=== PATIENT | female | born 1955 | race Caucasian/White ===

== ENCOUNTER → 2023-11-30 19:30 | Outpatient (REF) | payer MEDICARE, OTHER, SELFPAY | LOC: WDC 19:30 | PROVIDERS: ATTENDING PHYSICIAN Nurse Practitioner Family; FAMILY PHYSICIAN Family Medicine | DX: Z12.31 Encounter for screening mammogram for malignant neoplasm of breast (principal) | CPT/HCPCS: 77063; 77067 ==

== ENCOUNTER 2024-06-23 06:20 | Day surgery (SDC) | payer MEDICARE, OTHER, SELFPAY | END 2024-06-23 12:04 | disposition home or self-care (01) | LOC: GI 06:20 | PROVIDERS: ATTENDING PHYSICIAN Specialist | DX: Z12.11 Encounter for screening for malignant neoplasm of colon (principal); K57.30 Diverticulosis of large intestine without perforation or abscess without bleeding; D12.0 Benign neoplasm of cecum; D12.2 Benign neoplasm of ascending colon; D12.3 Benign neoplasm of transverse colon; K63.5 Polyp of colon; Z86.0101 Personal history of adenomatous and serrated colon polyps | CPT/HCPCS: 45385; 45380; 88305 ==

== ENCOUNTER 2024-07-27 22:20 | Inpatient (IN) | payer MEDICARE, OTHER, SELFPAY ==
[2024-07-27 15:35] VITALS: BP 146/89
--- NOTE | 2024-07-27 15:57 | ED.GENMED ---
History of Present Illness
General
Chief Complaint: Abdominal Symptoms
Source: patient
Exam Limitations: none
Time Seen by Provider: 07/27/24 15:52
History of Present Illness
History of Present Illness:
See MDM
Past History
Past History
ED Past Medical History: Other (RSD, Parkinson's, diverticulitis, melanoma)
ED Past Surgical History: Cholecystectomy, and Orthopedic
Social History
Tobacco: Non-smoker
Alcohol: None
Personal:
Living: with family
Family History
Family History: Other (she has a mother with hypertension hyperlipidemia)
Phy Exam
Physical Exam
Physical Exam:
See MDM
Course
Orders/Labs/Results
Orders:
Orders
07/27/24 15:57
CT Abd/pelvis W Iv Cont Urgent
Comment:
Reason For Exam: RLQ pain
07/27/24 16:17
Complete Blood Count/With Diff Urgent
Comprehensive Metabolic Panel Urgent
Lipase Urgent
07/27/24 16:19
Ketorolac [Toradol] 30 mg IV NOW STA
07/27/24 17:52
Morphine Sulfate 4 mg IV NOW STA
07/27/24 19:01
HYDROmorphone [Dilaudid] 0.5 mg IV NOW STA
07/27/24 20:25
HYDROmorphone [Dilaudid] 1 mg IV NOW STA
07/27/24 20:44
Urinalysis Reflex To Culture Urgent
Date Specimen was Collected: 07/27/24
Time Specimen was Collected: 16:06
07/27/24 21:08
Piperacillin/Tazo 3.375 Gram [Zosyn] 3.375 gram in 50 ml IV NOW
Abnormal Lab Results
07/27/24
16:17
WBC 11.6 H 10^3/uL
(4.8-10.8)
MCH 31.4 H pg
(27.0-31.0)
Absolute Neuts (auto) 8.3 H 10^3/uL
(1.4-6.5)
Absolute Monos (auto) 0.8 H 10^3/uL
(0.1-0.6)
Lymphocytes % 19.4 L %
(20.5-51.1)
Carbon Dioxide 32 H mmol/L
(22-30)
Glucose 106 H mg/dl
(70-99)
Total Protein 6.1 L g/dl
(6.3-8.2)
07/27/24 16:17
07/27/24 16:17
Vital Signs
Initial and Last Documented VS:
Initial Vital Signs
Temp Pulse Resp BP Pulse Ox
98.5 F 79 18 146/89 100
07/27/24 15:35 07/27/24 15:35 07/27/24 15:35 07/27/24 15:35 07/27/24 15:35
Last Documented Vital Signs
Temp Pulse Resp BP Pulse Ox
97.9 F 79 18 144/71 95
07/27/24 20:34 07/27/24 15:35 07/27/24 15:35 07/27/24 20:26 07/27/24 20:30
MDM/Problems Addressed
Differential Diagnosis Includes:
HPI and MDM Narrative:
68-year-old female presenting with right lower quadrant pain. Symptoms started since yesterday. She states it was gradual onset. at bedside is concerned it could be appendicitis. On exam, she is mildly uncomfortable. No significant
abdominal tenderness on exam. I question any urinary symptoms. She states she did have hematuria a few weeks ago that was treated with antibiotics.
Given complaint, will obtain CT to rule out kidney stone pathology or possibly acute appendicitis
Physical exam
General: Mildly uncomfortable
HEENT: protecting airway
Neck: appears supple
CV: No evidence of cyanosis
Resp: No accessory muscle use
Abd: Non-distended. Mild right lower quadrant tenderness
Extremities: No deformities
Neuro: alert
Psych: Normal affect
Skin: Intact
Problems Addressed including Acute and Chronic Conditions affecting care:
1. Abdominal pain
Acuity: acute
Prognosis: stable
Details: Given right lower quadrant tenderness, will obtain CT to rule out acute appendicitis
Updates
CT consistent with severe diverticulitis. Given the multiple doses of pain medicine, will start antibiotics and admit. Given the Cipro allergy, will start Zosyn
Differential Diagnosis (but not limited to): Acute appendicitis, kidney stone, constipation
Testing considered: Abdominal ultrasound
Drug therapy (if applicable): OTC meds, please see d/c instruction regarding Rx drugs
Amount and/or Complexity of Data Reviewed
Clinical info obtained from: Patient
External data reviewed: N/A
Labs I independently reviewed (but not limited to): Mild leukocytosis
Radiology: The CT scan was personally and independently reviewed. In addition, official CT report reviewed.
Pulse Ox: not hypoxic
EKG independently reviewed: N/A
Facetor: N/A
Critical Care: N/A
Risk of Complication:
Social Determinants of health: Good social support
Discussed with other providers: Hospitalist
Escalation of Care includes Admit/Obs: Given the significant mount of diverticulitis and her discomfort, will start IV pain medicine and IV antibiotics
Occasional wrong word or 'sound a like' substitutions may have occurred due to the inherent limitations of voice recognition software. Read the chart carefully and recognize, using context, where substitutions have occurred.
*Critical Care Note
Total Time (30-74mins, 75-104mins- exclusive of procedures): Not Applicable
ED Attending Note
-
Portions of this chart may have been created with voice recognition software.� Occasional wrong word or��sound alike� substitutions may have occurred due to the inherent limitations of voice recognition software.
Discharge Plan
Departure
Patient Disposition: Admit
Date of Disposition: 07/27/24
Time of Disposition: 21:20
Admit to: Med/Surg
Presentation/result/management discussed w/ accepting MD/DO: Hospitalist
Discharge Problem:
Diverticulitis
Prescriptions:
No Action
ascorbic acid (vitamin C) [Vitamin C] 500 MG tablet
2,000 mg PO DAILY
levothyroxine 50 MCG tablet
50 mcg PO DAILY
vitamin B complex [B-Complex] 1 TAB tablet
1 tab PO DAILY
ketorolac 10 MG tablet
10 mg PO Q6HPRN PRN (Reason: little)
vitamin D3-vitamin K2 (MK4) [K2 Plus D3] 1 EACH tablet
6 drops PO DAILY
safinamide [Xadago] 100 MG tablet
100 mg PO DAILY
Tumeric
4 tab PO DAILY
cyanocobalamin (vitamin B-12) 1,000 MCG tablet
1,000 mcg PO DAILY
bupropion HCl 150 MG tablet extended release 24 hr
150 mg PO DAILY
multivitamin with folic acid [Tab-A-Marlene] 1 TABLET tablet
1 tab PO DAILY
amoxicillin-pot clavulanate 1 TABLET tablet
1 tab PO Q12 Qty: 20 0RF
Bacillus coagulans [Probiotic (B. coagulans)] 1 EACH capsule,delayed release(DR/EC)
1 ea PO DAILY Qty: 30 0RF
Rx Instructions:
take while on oral antibiotics
pantoprazole [Protonix] 40 mg tablet,delayed release (DR/EC)
40 mg PO DAILY Qty: 30 0RF
Rx Instructions:
Please take 30 minutes prior to eating or drinking anything in the morning.
Referrals:
Araseli Baca MD [Family Provider] -
Interventions
Interventions:
*Risk Screen - Suicide Last Done: 07/27/24 15:35
*General Assessment Last Done: 07/27/24 15:35
*Neglect/Abuse Screening Last Done: 07/27/24 15:35
*ED- Fall Risk Assessment Last Done: 07/27/24 16:26
*ED COVID-19 Vaccine History Last Done: 07/27/24 16:26
OC-Jpiwxg-Qecdwvixqt Assessment Last Done: 07/27/24 16:26
Discharge Date and Time
Print Language: BENGALI
[2024-07-27] MEDS: TORADOL 30 MG IV (16:23)
[2024-07-27 16:26] VITALS: BMI 29.4
[2024-07-27 16:26] LABS: % Basophils 0.3 % (0-2); % Eosinophils 1.5 % (0-6); % Immature Granulocytes 0.3 % (0-0.5); % Lymphocytes 19.4 % (20.5-51.1); % Monocytes 6.9 % (1.7-9.3); % Neutrophils 71.6 % (42.2-75.2); Absolute Eosinophils 0.2 10^3/uL (0-0.7); Absolute Lymphocytes 2.3 10^3/uL (1.2-3.4); Absolute Monocytes 0.8 10^3/uL (0.1-0.6); Absolute Neutrophils 8.3 10^3/uL (1.4-6.5); Hematocrit 39.5 % (37.0-47.0); Hemoglobin 13.4 g/dL (12.0-16.0); Mean Corp Hgb Conc. 33.9 g/dL (33.0-37.0); Mean Corpuscular Hgb 31.4 pg (27.0-31.0); Mean Corpuscular Volume 92.5 fL (81.0-99.0); Mean Platelet Volume 9.8 fL (7.4-10.4); Nucleated Red Blood Cells % 0 %; Platelet Count 265 10^3/uL (130-400); Red Blood Cell Count 4.27 10^6/uL (4.20-5.40); Red Cell Dist. Width 12.7 % (11.5-14.5); White Blood Cell Count 11.6 10^3/uL (4.8-10.8)
[2024-07-27 16:39] LABS: ALT (SGPT) 17 U/L (0-35); AST (SGOT) 17 U/L (14-36); Albumin 3.8 g/dl (3.5-5.0); Alkaline Phosphatase 81 U/L (38-126); Blood Urea Nitrogen 14 mg/dl (7-17); Carbon Dioxide 32 mmol/L (22-30); Chloride 107 mmol/L (98-107); Estimated Creatinine Clearance 69 ml/min; Glucose 106 mg/dl (70-99); Lipase 35 U/L (23-300); Potassium 4.3 mmol/L (3.5-5.1); Sodium 141 mmol/L (135-145); Total Bilirubin 0.6 mg/dl (0.2-1.3); Total Protein 6.1 g/dl (6.3-8.2); eGFR > 60.00
[2024-07-27] MEDS: MORPHINE SULFATE 4 MG IV (18:02)
[2024-07-27] MEDS: DILAUDID 0.5 MG IV (19:06)
[2024-07-27 20:26] VITALS: BP 144/71
[2024-07-27] MEDS: DILAUDID 1 MG IV (20:30)
[2024-07-27] MEDS: ZOFRAN 4 MG IV (21:32)
--- NOTE | 2024-07-27 21:32 | HPS.HSE ---
Family Physician
-
Family Physician: Araseli Baca
Chief Complaint
-
abdominal pain
History of Present Illness
Ms. Cynthia Rodriguez is a 68 yo woman with hx Parkinson's disease, cholecystectomy, cervical fusion surgery presents to the ER complaining of abdominal pain.
She has had acute diverticulitis before, last time 3 years ago. Yesterday pain started and she presented to ER today. Pain is lower abdomen. + nausea. No fevers/chills.
She denies current pain in RUQ but states sometimes she experiences pain thre post eating.
No chest pain or shortness of breath. No LE swelling.
Medical History
Past Medical History
Past Medical History: Reports Other (Migraine, Parkinson's)
Past Surgical History: Reports Cholecystectomy and Orthopedic
Social History
Tobacco: Former Smoker
Alcohol: Occasional
Family History
Family History: Not pertinent
Allergies / Home Medications
Allergies reflects when Allergies were last updated in [facility].
Home Medications with original date entered in [facility]
Allergy/Medication List:
Allergies
Allergy/AdvReac Type Severity Reaction Status Date / Time
ciprofloxacin Allergy Unknown Verified 07/27/24 15:35
zolmitriptan [From Zomig] Allergy Hives Verified 07/27/24 15:35
Home Medications
ascorbic acid (vitamin C) 500 mg tablet (Vitamin C) 2,000 mg PO DAILY Supplement 10/10/11
levothyroxine 50 mcg tablet 50 mcg PO DAILY Thyroid 10/10/11
vitamin B complex (B-Complex tablet) 1 tab PO DAILY Supplement 10/10/11
cholecalciferol (vit D3) 1,000 unit-vitamin K2 (MK4) 100 mcg tablet (K2 Plus D3) 6 drops PO DAILY Supplement 05/19/21
cyanocobalamin (vitamin B-12) 1,000 mcg tablet 1,000 mcg PO DAILY Supplement 05/19/21
multivitamin with folic acid 400 mcg tablet (Tab-A-Marlene) 1 tab PO DAILY Supplement 05/19/21
safinamide 100 mg tablet (Xadago) 100 mg PO DAILY parkinson's 05/19/21
turmeric 400 mg capsule 400 mg PO DAILY Supplement 05/19/21
Lactobac no.2-Bifidobac no.1-S. thermo 112.5 billion cell capsule (Visbiome) 1 cap PO DAILY 07/27/24
carbidopa 25 mg-levodopa 100 mg tablet 1 tab PO TID 07/27/24
ramelteon 8 mg tablet 8 mg PO HS 07/27/24
rimegepant 75 mg disintegrating tablet (Nurtec ODT) 75 mg PO DAILYPRN PRN MIRGRAINES 07/27/24
trazodone 50 mg tablet 25 mg PO HS 07/27/24
Review of Systems
-
History Source: Patient
A 12 point ROS was completed and negative except as noted: Yes
Physical Exam
Vital Signs
Vital Signs
Temp Pulse Resp BP Pulse Ox
97.9 F 79 18 144/71 95
07/27/24 20:34 07/27/24 15:35 07/27/24 15:35 07/27/24 20:26 07/27/24 20:30
Physical Exam
General: Other (appears in pain )
HEENT: PERRLA
Respiratory: Clear; No Wheezes
Cardiac: S1/S2 and Regular Rhythm
GI: Other (no tenderness RUQ; tender b/l lower quadrants, no rebound or guarding )
Musculoskeletal: No Edema
Skin: Warm and Dry; No Rash
Neuro: AO x 3
Psych: Calm
Laboratory Results
-
07/27/24 16:17
07/27/24 16:17
Laboratory Results
Total Bilirubin 0.6 mg/dl (0.2-1.3) 07/27/24 16:17
AST 17 U/L (14-36) 07/27/24 16:17
ALT 17 U/L (0-35) 07/27/24 16:17
Alkaline Phosphatase 81 U/L (38-126) 07/27/24 16:17
Lipase 35 U/L (23-300) 07/27/24 16:17
Data Reviewed
-
Diagnostic Radiology: Report Reviewed by me
Lab Data: Labs Reviewed by me
Impression/Plan
-
Ms. Cynthia Rodriguez is a 68 yo woman with hx Parkinson's disease, cholecystectomy, cervical fusion surgery presents to the ER complaining of abdominal pain found to have acute diverticulitis. She is also found to have severe intrahepatic and
extrahepatic biliary dilatation.
Triage VS: T 98.5, P 79, RR 18, BP 146/89, SpO2 100%
LABS: WBC 11.6, Hg 13.4, PLT 265, Na 141, K+ 4.3, CO2 32, BUN 14, Cr 0.8, Glucose 106, liver enzymes WNL, lipase 35
Abdomen/Pelvis CT
IMPRESSION:
1. ACUTE DIVERTICULITIS of the MID SIGMOID COLON with severe pericolonic inflammation and a small amount of adjacent peritoneal fluid.
2. Severe diverticulosis in the sigmoid colon and ascending colon.
3. Moderate amount of fecal material throughout the colon.
4. SEVERE INTRAHEPATIC and EXTRAHEPATIC BILIARY DILATATION which has markedly increased since 01/19/2023.
5. Mild hepatomegaly.
6. Mild diffuse urinary bladder wall thickening containing tiny calcifications suggesting chronic cystitis.
7. Small calcified uterine leiomyoma.
Acute Diverticulitis
-admit to medicine
-continue IV Zosyn
-IVF
-NPO except medications
-pain control
Severe intrahepatic and extrahepatic biliary dilatation
-liver enzymes WNL
-will order MRI Abdomen w and w/out contrast
-GI consulted
Parkinson's disease
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
DVT PPx Lovenox subQ
FULL CODE
[2024-07-27] MEDS: ZOSYN 50 IV (21:35)
[2024-07-27] MEDS: FLUSH (NSS) 1 FLUSH IV (23:03)
[2024-07-27 23:11] LABS: Urine Albumin 2+ (Neg - Trace); Urine Bilirubin Negative (Negative); Urine Character Clear (Clear); Urine Color Yellow; Urine Glucose Negative (Negative); Urine Ketone Negative (Negative); Urine Leukocyte Negative (Negative); Urine Nitrite Negative (Negative); Urine Occult Blood 4+ (Negative); Urine Urobilinogen 2+ (Neg - 1+); Urine pH 6.5 (5.0-9.0)
[2024-07-27 23:25] LABS: Urine White Cell None Seen /HPF (0-5)
[2024-07-27] MEDS: TORADOL 15 MG IV (23:44)
[2024-07-27] MEDS: LR 1000 IV (23:49)
[2024-07-27] MEDS: DESYREL 25 MG PO (23:50)
[2024-07-28 00:02] VITALS: BP 104/56
[2024-07-28] MEDS: SINEMET 25-100 1 TABLET PO ×4 (00:24→22:02)
[2024-07-28] MEDS: ZOSYN 50 IV ×4 (04:17→22:01)
[2024-07-28 04:27] VITALS: BP 127/71
[2024-07-28] MEDS: DILAUDID 1 MG IV ×2 (04:32→22:01)
[2024-07-28 04:41] LABS: % Basophils 0.3 % (0-2); % Eosinophils 1.3 % (0-6); % Immature Granulocytes 0.3 % (0-0.5); % Lymphocytes 19.8 % (20.5-51.1); % Neutrophils 71.3 % (42.2-75.2); Absolute Eosinophils 0.1 10^3/uL (0-0.7); Absolute Monocytes 0.7 10^3/uL (0.1-0.6); Absolute Neutrophils 7.3 10^3/uL (1.4-6.5); Hematocrit 36.4 % (37.0-47.0); Hemoglobin 12.3 g/dL (12.0-16.0); Mean Corp Hgb Conc. 33.8 g/dL (33.0-37.0); Mean Corpuscular Hgb 31.1 pg (27.0-31.0); Mean Corpuscular Volume 91.9 fL (81.0-99.0); Nucleated Red Blood Cells % 0 %; Platelet Count 244 10^3/uL (130-400); Red Blood Cell Count 3.96 10^6/uL (4.20-5.40); Red Cell Dist. Width 12.5 % (11.5-14.5); White Blood Cell Count 10.2 10^3/uL (4.8-10.8)
[2024-07-28 05:08] LABS: ALT (SGPT) 13 U/L (0-35); AST (SGOT) 132 U/L (14-36); Albumin 3.4 g/dl (3.5-5.0); Alkaline Phosphatase 95 U/L (38-126); Blood Urea Nitrogen 16 mg/dl (7-17); Calcium 8.6 mg/dl (8.4-10.2); Carbon Dioxide 27 mmol/L (22-30); Chloride 109 mmol/L (98-107); Estimated Creatinine Clearance 79 ml/min; Glucose 119 mg/dl (70-99); Magnesium 2.1 mg/dl (1.6-2.3); Potassium 4.3 mmol/L (3.5-5.1); Sodium 141 mmol/L (135-145); Total Bilirubin 1.2 mg/dl (0.2-1.3); Total Protein 5.7 g/dl (6.3-8.2); eGFR > 60.00
[2024-07-28] MEDS: SYNTHROID 50 MCG PO (07:54)
--- NOTE | 2024-07-28 08:10 | CON.GI ---
Addendum entered and electronically signed by Jason Tucker MD 07/28/24 16:06:
Patient seen and examined, agree with resident note. Patient is a 68-year-old female with past medical history as noted who presents with right sided and left lower quadrant pain. About 2 days ago she started having pain, initially in the right
side that radiates to her lower back and also left-sided pain with diarrhea. She denies any fevers or chills. Her left-sided pain does feel somewhat similar to her diverticulitis in the past though not the right sided pain. She did have hematuria
grossly also a couple weeks ago and saw her PCP. Her last colonoscopy was this year with 5 polyps and diverticulosis. Currently she is feeling better, again with no severe pain again though still having some bilateral discomfort. On exam she has
some mild right sided tenderness as well as some mild left lower quadrant tenderness, though no rebound or guarding. Labs showed initial with normally LFTs, though AST then increased on repeat. CT scan showed changes consistent with uncomplicated
diverticulitis as well as significant intra and extra [place] biliary duct dilation.
1. Diverticulitis: With left lower quadrant pain and consistent with CT scan, though uncomplicated. Colonoscopy earlier this year was otherwise unremarkable. Will continue antibiotics, bowel rest and supportive care for now.
2. Dilated intra/extrahepatic biliary ducts: She did have some right sided pain, though her LFTs on admission were completely normal making CBD stone much less likely. She did have gross hematuria also and other etiologies including passed kidney
stone or bladder stone are also possible. At this point we will continue to trend LFTs and await MRI as ordered.
Original Note:
Consultation
-
Date/Time Consultation Requested: 07/28/2024
Date/Time Consultation Performed: 07/28/2024
Requesting Provider: Dr Julio C Tucker
Performing Provider: Dr Lino Caceres
Reason for Consultation: diverticulitis
Medical History
Chief Complaint / HPI
Chief Complaint: Abdominal pain
History of Present Illness:
68-year-old female with history of Parkinson disease presented to the ED with left and right lower quadrant pain. Patient states that 2 days ago she started to feel unwell. She reports of having watery diarrhea x 3 episodes. Yesterday (07/27) she
started having right lower quadrant pain first and then it radiated to the left lower quadrant and then to her lower back. Patient also lost her appetite. She admits to having nausea and some chills. She denies fever vomiting. She does not take
any medication to alleviate her pain. She has had diverticulitis in the past twice. She denies personal history/family history of colon cancer. Her last colonoscopy was in 2024--5 polyps were removed. No history of diabetes, hypertension,
hyperlipidemia, stroke, PA. She is a former smoker, quit 40 years ago. She rarely drinks alcohol. She admits to taking Advil/Tylenol for migraine headaches.
Past Medical History
Past Medical History: Other (Parkinson's disease)
Past Surgical History: Cholecystectomy
Social History
Tobacco: Former Smoker
Alcohol: Occasional
Drug: None
Personal:
Living: With Family
Employment: Retired
Family History
Family History: Reviewed & Not Pertinent
Allergies / Home Medications
Allergy/AdvReac Type Severity Reaction Status Date / Time
ciprofloxacin Allergy Unknown Verified 07/27/24 15:35
zolmitriptan [From Zomig] Allergy Hives Verified 07/27/24 15:35
�Medication �Instructions �Recorded
ascorbic acid (vitamin C) 500 mg 2,000 mg PO DAILY Supplement 10/10/11
tablet (Vitamin C)
levothyroxine 50 mcg tablet 50 mcg PO DAILY Thyroid 10/10/11
vitamin B complex (B-Complex 1 tab PO DAILY Supplement 10/10/11
tablet)
cholecalciferol (vit D3) 1,000 6 drops PO DAILY Supplement 05/19/21
unit-vitamin K2 (MK4) 100 mcg
tablet (K2 Plus D3)
cyanocobalamin (vitamin B-12) 1,000 mcg PO DAILY Supplement 05/19/21
1,000 mcg tablet
multivitamin with folic acid 400 1 tab PO DAILY Supplement 05/19/21
mcg tablet (Tab-A-Marlene)
safinamide 100 mg tablet (Xadago) 100 mg PO DAILY parkinson's 05/19/21
turmeric 400 mg capsule 400 mg PO DAILY Supplement 05/19/21
Lactobac no.2-Bifidobac no.1-S. 1 cap PO DAILY 07/27/24
thermo 112.5 billion cell capsule
(Visbiome)
carbidopa 25 mg-levodopa 100 mg 1 tab PO TID 07/27/24
tablet
ramelteon 8 mg tablet 8 mg PO HS 07/27/24
rimegepant 75 mg disintegrating 75 mg PO DAILYPRN PRN MIRGRAINES 07/27/24
tablet (Nurtec ODT)
trazodone 50 mg tablet 25 mg PO HS 07/27/24
Review of Systems
-
All other systems: A 12 pt ROS was Negative except as stated above in HPI
Vital Signs
Temp Pulse Resp BP Pulse Ox
97.9 F 55 16 127/71 96
07/28/24 04:26 07/28/24 04:26 07/28/24 04:26 07/28/24 04:27 07/28/24 04:30
Physical Exam
Exam
General: No Apparent Distress and Comfortable
HEENT: Normocephalic
Respiratory: Clear
Cardiac: S1/S2 and Regular Rhythm
GI: Soft, Non Distended, Normal Bowel Sounds and Tender (LLQ )
Musculoskeletal: No Edema
Neuro: AO x 3
Psych: Calm
Results
WBC 10.2 10^3/uL (4.8-10.8) 07/28/24 04:16
Hgb 12.3 g/dL (12.0-16.0) 07/28/24 04:16
Hct 36.4 % (37.0-47.0) L 07/28/24 04:16
MCV 91.9 fL (81.0-99.0) 07/28/24 04:16
Plt Count 244 10^3/uL (130-400) 07/28/24 04:16
Absolute Neuts (auto) 7.3 10^3/uL (1.4-6.5) H 07/28/24 04:16
Sodium 141 mmol/L (135-145) 07/28/24 04:16
Potassium 4.3 mmol/L (3.5-5.1) 07/28/24 04:16
Chloride 109 mmol/L (98-107) H 07/28/24 04:16
Carbon Dioxide 27 mmol/L (22-30) 07/28/24 04:16
BUN 16 mg/dl (7-17) 07/28/24 04:16
Creatinine 0.7 mg/dL (0.6-1.0) 07/28/24 04:16
Calcium 8.6 mg/dl (8.4-10.2) 07/28/24 04:16
Total Bilirubin 1.2 mg/dl (0.2-1.3) 07/28/24 04:16
AST 132 U/L (14-36) H 07/28/24 04:16
ALT 13 U/L (0-35) 07/28/24 04:16
Alkaline Phosphatase 95 U/L (38-126) 07/28/24 04:16
Lipase 35 U/L (23-300) 07/27/24 16:17
Diagnostic Image Results:
Prior GI Procedures:
EGD:
Colonoscopy: 06/23/24
- Two 6 mm polyps in the ascending colon, removed with
a cold snare. Resected and retrieved.
- Two diminutive polyps at the hepatic flexure and in
the cecum, removed with a jumbo cold forceps. Resected
and retrieved.
- One 5 mm polyp in the transverse colon, removed with
a cold snare. Resected and retrieved.
- Diverticulosis in the sigmoid colon.
Assessment / Plan
-
Assessment and plan
#Acute mild diverticulitis
#Intra/extrahepatic biliary dilatation on CT abdomen/pelvis
-History of diverticulitis in the past x 2. Up-to-date with colonoscopy no need for repeat
- Afebrile no leukocytosis,
- AST has elevated 132, alk phos 95 , ALT 13. bili 1.2
- Check MRI of abdomen
- Monitor LFT
-Continue antibiotic
- NPO for now, await imaging for further recommendation.
-
-
Thank you for consultation and allowing me to participate in the patient's care. Please call the parking regulation enforcement officer GI physician during the after hours with any questions or concerns.
[2024-07-28] MEDS: TYLENOL 650 MG PO ×2 (09:18→15:40)
[2024-07-28] MEDS: TORADOL 15 MG IV ×2 (11:03→17:34)
[2024-07-28 11:14] VITALS: BP 121/60
[2024-07-28] MEDS: LR 1000 IV (13:43)
--- NOTE | 2024-07-28 15:26 | W.PN.HOSP.TC ---
Addendum entered and electronically signed by Philip Salgado MD 07/28/24 21:27:
Attending Addendum-
I saw and evaluated the patient. I reviewed the resident�s note and agree with findings and plan as documented in the resident�s note. Sub: Seen with present. Still with abd pain lower abdomen. Non radiating. Denies N/V. No appetite yet.
Denies diarrhea. Afebrile. Full 12 point ROS reviewed and negative except as documented Exam: Vitals reviewed in chart GEN-NAD heart RRR lungs CTA B/L Abd soft TTP LLQ and RUQ LE no edema
Plan:
# Acute uncomplicated Diverticulitis
-continue IV Zosyn
-IVF
-NPO except medications for now
-pain control
-GI c/s
# Severe intrahepatic and extrahepatic biliary dilatation
-ast now elevated
-h/o cholecystectomy
-MRCP ordered
-GI consulted
-trend
# Hematuria
- CTM
- f/u as OP
# Parkinson's disease
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
# Hypothyroidism- cont levothyroxine
# Insomnia- cont trazodone
DVT PPx Lovenox subQ
FULL CODE
ACP
Patient consented to discuss, was with , time spent explanation of advance directives, changes in health status, patient�s health care wishes if the patient becomes unable to make health decisions, goals of care, code status, and prognosis-
16 minutes
Time spent coordinating care, review of plan of care with resident, personally reviewed previous records in EMR, med rec, labs, radiology, d/w nursing, family total time documented is exclusive of any additional time listed that was spent in advance
care planning discussion -� 52 minutes
Original Note:
Today's Communication/Plan
-
Keep n.p.o., continue IV fluids, manage pain
MRI Abdomen
Assessment / Plan
Assessment / Plan
Impression
Patient is a 68-year-old female, who presented to emergency with history of diarrhea for last 2 days with chills, containing mucus, no blood. Started developing abdominal pain in the left lower quadrant and right lower quadrant since yesterday. CT
abdomen done in the ER consistent with acute diverticulitis in mid sigmoid colon.
Assessment/plan
1. Acute uncomplicated diverticulitis
Patient complains of bilateral lower quadrant pain, nausea, loose stools but is afebrile and has no vomiting
Tender on palpation in bilateral lower quadrants
CT abdomen and pelvis consistent with acute diverticulitis of sigmoid colon
CT abdomen/pelvis
IMPRESSION
1. ACUTE DIVERTICULITIS of the MID SIGMOID COLON with severe pericolonic inflammation and a small amount of adjacent peritoneal fluid.
2. Severe diverticulosis in the sigmoid colon and ascending colon.
3. Moderate amount of fecal material throughout the colon.
4. SEVERE INTRAHEPATIC and EXTRAHEPATIC BILIARY DILATATION which has markedly increased since 01/19/2023.
5. Mild hepatomegaly.
6. Mild diffuse urinary bladder wall thickening containing tiny calcifications suggesting chronic cystitis.
7. Small calcified uterine leiomyoma.
GI consult appreciated-awaiting MRI abdomen
Patient is n.p.o., on IV fluids, and pain management
Currently on Zosyn
Follow MRI abdomen
Continue to observe the patient, and advance diet as tolerated
2. Severe intrahepatic and extrahepatic biliary dilatation with mildly elevated liver enzymes
History of cholecystectomy
Patient asymptomatic
Mild elevation in liver enzymes-continue to monitor
Other medical conditions
Parkinson's disease-continue Sinemet and xadago
Hypothyroidism-continue levothyroxine
Migraines
CODE STATUS-full code
DVT prophylaxis-enoxaparin
Anticipated Discharge: 24 - 48 hours
Subjective/Interval History
-
Date of Service: July 28, 2024
Patient still complains of abdominal pain in the left lower quadrant and right lower quadrant, rates the pain as 4/10
Has bouts of nausea
No appetite
Objective Data
-
Labs:
Laboratory Results
07/28/24
04:16
WBC 10.2
Hgb 12.3
Hct 36.4 L
Plt Count 244
Sodium 141
Potassium 4.3
Chloride 109 H
Carbon Dioxide 27
BUN 16
Creatinine 0.7
Glucose 119 H
Calcium 8.6
Total Bilirubin 1.2
AST 132 H
ALT 13
Alkaline Phosphatase 95
Vital Signs:
Vital Signs
Temp Pulse Resp BP Pulse Ox
97.6 F 47 16 121/60 98
07/28/24 11:14 07/28/24 11:14 07/28/24 11:14 07/28/24 11:14 07/28/24 11:14
Review of Systems
-
All other systems: Reviewed and negative
Physical Exam
-
General: Well Developed, Well Nourished, No Apparent Distress, Comfortable and Conversant
HEENT: Normocephalic, Atraumatic and Moist Mucous Membranes
Respiratory: Clear to Auscultation and Other (No wheezes rales or rhonchi)
Cardiac: Regular Rhythm, S1/S2 and Other (No murmurs, rubs or gallops)
GI: Soft, Normal Bowel Sounds, Tender (Tender on palpation in the left lower quadrant and right lower quadrant) and Other (No guarding)
Musculoskeletal: No Clubbing, No Cyanosis and No Edema
Skin: Warm and Dry
Neuro: Awake, Oriented and No Motor Deficits
Psych: Calm
[2024-07-28 15:44] VITALS: BP 123/65
[2024-07-28] MEDS: DESYREL 25 MG PO (22:01)
[2024-07-28] MEDS: ZOFRAN 4 MG IV (22:52)
[2024-07-28 23:11] LABS: Glucose - Point of Care 87 mg/dl (70-99)
[2024-07-28 23:27] VITALS: BP 157/69
[2024-07-29] MEDS: ZOSYN 50 IV ×4 (04:04→21:09)
[2024-07-29] MEDS: SYNTHROID 50 MCG PO (05:58)
[2024-07-29] MEDS: LR IV (06:00)
[2024-07-29 07:33] VITALS: BP 156/86
[2024-07-29] MEDS: SINEMET 25-100 1 TABLET PO ×3 (07:59→21:09)
[2024-07-29] MEDS: ZOFRAN 4 MG IV (08:05)
--- NOTE | 2024-07-29 08:25 | W.PN.GI.CBS2 ---
Today's Communication / Plan
-
Please see assessment and plan for details.
Assessment / Plan
-
1. Abdominal pain: Most consistent with diverticulitis, noted on CT scan, with initial leukocytosis which is since resolved. Her pain is improving. At this point will advance diet to full liquids and continue antibiotics, continue to trend labs
for now. Colonoscopy earlier this year was otherwise unremarkable besides diverticulosis and polyps.
2. Dilated biliary ducts: LFTs normal initially, with slight bump in AST possibly related to antibiotics. Will await MRI results and continue to trend LFTs for now.
Subjective
Subjective
Date of Service: July 29, 2024
Patient was in nausea overnight, though improved pain. No diarrhea, fever, chills, vomiting. Has tolerated clears without difficulty so far.
Objective
Data Reviewed
Laboratory Data:
Laboratory Results
Magnesium 2.1 mg/dl (1.6-2.3) 07/28/24 04:16
Total Bilirubin 1.2 mg/dl (0.2-1.3) 07/28/24 04:16
AST 132 U/L (14-36) H 07/28/24 04:16
ALT 13 U/L (0-35) 07/28/24 04:16
Alkaline Phosphatase 95 U/L (38-126) 07/28/24 04:16
Lipase 35 U/L (23-300) 07/27/24 16:17
Vital Signs and I&O:
Vital Signs
Temp Pulse Resp BP Pulse Ox
98.1 F 83 18 156/86 98
07/29/24 07:33 07/29/24 07:33 07/29/24 07:33 07/29/24 07:33 07/29/24 07:33
Physical Exam
Physical Exam
General: NAD
Abdomen: normal bowel sounds, soft, minimal left lower quadrant tenderness, no masses or bruits, no ascites
[2024-07-29] MEDS: TYLENOL 650 MG PO (09:46)
[2024-07-29 10:02] LABS: % Basophils 0.5 % (0-2); % Eosinophils 1.4 % (0-6); % Immature Granulocytes 0.4 % (0-0.5); % Lymphocytes 11.3 % (20.5-51.1); % Monocytes 3.4 % (1.7-9.3); Absolute Eosinophils 0.1 10^3/uL (0-0.7); Absolute Lymphocytes 0.9 10^3/uL (1.2-3.4); Absolute Monocytes 0.3 10^3/uL (0.1-0.6); Absolute Neutrophils 6.6 10^3/uL (1.4-6.5); Hematocrit 38.6 % (37.0-47.0); Hemoglobin 13.3 g/dL (12.0-16.0); Mean Corp Hgb Conc. 34.5 g/dL (33.0-37.0); Mean Corpuscular Hgb 31.6 pg (27.0-31.0); Mean Corpuscular Volume 91.7 fL (81.0-99.0); Mean Platelet Volume 10.3 fL (7.4-10.4); Nucleated Red Blood Cells % 0 %; Platelet Count 251 10^3/uL (130-400); Red Blood Cell Count 4.21 10^6/uL (4.20-5.40); Red Cell Dist. Width 12.1 % (11.5-14.5)
[2024-07-29 10:40] LABS: ALT (SGPT) 41 U/L (0-35); AST (SGOT) 82 U/L (14-36); Albumin 3.4 g/dl (3.5-5.0); Alkaline Phosphatase 143 U/L (38-126); Blood Urea Nitrogen 21 mg/dl (7-17); Calcium 8.4 mg/dl (8.4-10.2); Carbon Dioxide 24 mmol/L (22-30); Chloride 106 mmol/L (98-107); Direct Bilirubin 0.4 mg/dl (0.0-0.4); Estimated Creatinine Clearance 61 ml/min; Glucose 131 mg/dl (70-99); Magnesium 1.7 mg/dl (1.6-2.3); Potassium 3.9 mmol/L (3.5-5.1); Sodium 137 mmol/L (135-145); Total Protein 5.7 g/dl (6.3-8.2); eGFR > 60.00
[2024-07-29] MEDS: TORADOL 15 MG IV (11:03)
--- NOTE | 2024-07-29 11:39 | W.PN.HOSP.TC ---
Today's Communication/Plan
-
Pain control
Restart fluids if with nausea
Pain control
IV antibiotics
Assessment / Plan
Assessment / Plan
# Acute uncomplicated Diverticulitis
-continue IV Zosyn
- Off IV fluids and can be restarted if with nausea or vomiting
- Diet advanced however with abdominal pain. Recommend to skip lunch and try again later today for dinner.
-pain control
-GI c/s
# Severe intrahepatic and extrahepatic biliary dilatation
-ast now elevated
-h/o cholecystectomy
-MRCP results pending
-GI consulted
-trend
# Hematuria
- CTM
- f/u as OP
# Parkinson's disease
-PUMPER HEAD- Xadago, Sinemet, nurtec
# Hypothyroidism- cont levothyroxine
# Insomnia- cont trazodone
DVT PPx Lovenox subQ
FULL CODE
Anticipated Discharge: > 48 hours
Subjective/Interval History
-
Date of Service: July 29, 2024
states of abd pain after drinking broth earlier today
emotional due to pain
Objective Data
-
Labs:
Laboratory Results
07/29/24
08:55
WBC 8.0
Hgb 13.3
Hct 38.6
Plt Count 251
Sodium 137
Potassium 3.9
Chloride 106
Carbon Dioxide 24
BUN 21 H
Creatinine 0.9
Glucose 131 H
Calcium 8.4
Total Bilirubin 1.0
AST 82 H
ALT 41 H
Alkaline Phosphatase 143 H
Vital Signs:
Vital Signs
Temp Pulse Resp BP Pulse Ox
98.1 F 83 18 156/86 98
07/29/24 07:33 07/29/24 07:33 07/29/24 07:33 07/29/24 07:33 07/29/24 07:33
Physical Exam
-
General: Well Developed, Well Nourished, No Apparent Distress, Comfortable, Pain and Conversant
HEENT: Normocephalic, Atraumatic and Moist Mucous Membranes
Respiratory: Clear to Auscultation
Cardiac: Regular Rhythm and S1/S2
GI: Soft, Normal Bowel Sounds and Tender (Tender on palpation in the left lower quadrant and right lower quadrant)
Musculoskeletal: No Clubbing, No Cyanosis and No Edema
Skin: Warm and Dry
Neuro: Awake and No Motor Deficits
Psych: Calm
[2024-07-29] MEDS: MORPHINE SULFATE 2 MG IV ×3 (12:13→21:13)
--- NOTE | 2024-07-29 12:56 | CM ---
manager security and safety reviewed patient's chart and met with patient and patient lives with her spouse in a 2 story home, patient is independent with adl's and ambulation, no dme, patient drives, home with spouse when stable, no needs.
PCP: Dr Melinda Baca
Pharmacy: [facility] in [place]
Plan; Home with spouse no needs when stable.
[2024-07-29 15:22] VITALS: BP 150/76
[2024-07-29] MEDS: DESYREL 25 MG PO (21:07)
[2024-07-29 23:25] VITALS: BP 144/63
[2024-07-30] MEDS: ZOSYN 50 IV ×4 (04:35→21:53)
[2024-07-30] MEDS: SYNTHROID 50 MCG PO (05:03)
[2024-07-30] MEDS: MORPHINE SULFATE 2 MG IV ×4 (06:17→21:52)
[2024-07-30 06:33] LABS: % Basophils 0.5 % (0-2); % Eosinophils 6.2 % (0-6); % Immature Granulocytes 0.3 % (0-0.5); % Lymphocytes 33.7 % (20.5-51.1); % Monocytes 8.2 % (1.7-9.3); % Neutrophils 51.1 % (42.2-75.2); Absolute Eosinophils 0.5 10^3/uL (0-0.7); Absolute Lymphocytes 2.5 10^3/uL (1.2-3.4); Absolute Monocytes 0.6 10^3/uL (0.1-0.6); Absolute Neutrophils 3.7 10^3/uL (1.4-6.5); Hematocrit 36.8 % (37.0-47.0); Hemoglobin 12.7 g/dL (12.0-16.0); Mean Corp Hgb Conc. 34.5 g/dL (33.0-37.0); Mean Corpuscular Hgb 31.4 pg (27.0-31.0); Mean Corpuscular Volume 90.9 fL (81.0-99.0); Nucleated Red Blood Cells % 0 %; Platelet Count 268 10^3/uL (130-400); Red Blood Cell Count 4.05 10^6/uL (4.20-5.40); Red Cell Dist. Width 12.4 % (11.5-14.5); White Blood Cell Count 7.3 10^3/uL (4.8-10.8)
[2024-07-30 07:01] LABS: ALT (SGPT) 34 U/L (0-35); AST (SGOT) 41 U/L (14-36); Albumin 3.3 g/dl (3.5-5.0); Alkaline Phosphatase 128 U/L (38-126); Blood Urea Nitrogen 13 mg/dl (7-17); Calcium 8.6 mg/dl (8.4-10.2); Carbon Dioxide 29 mmol/L (22-30); Chloride 108 mmol/L (98-107); Estimated Creatinine Clearance 69 ml/min; Glucose 96 mg/dl (70-99); Sodium 141 mmol/L (135-145); Total Bilirubin 0.8 mg/dl (0.2-1.3); Total Protein 5.6 g/dl (6.3-8.2); eGFR > 60.00
[2024-07-30 07:46] VITALS: BP 140/73
--- NOTE | 2024-07-30 09:03 | W.PN.GI.CBS2 ---
Today's Communication / Plan
-
Please see assessment plan for details.
Assessment / Plan
-
1. Abdominal pain: Most consistent with diverticulitis, noted on CT scan, with initial leukocytosis which is since resolved. Her pain is overall improving and did have several bowel movements. Encouraged full liquid diet, and will add Bentyl for
now for possible spasm. Colonoscopy earlier this year was otherwise unremarkable besides diverticulosis and polyps.
2. Dilated biliary ducts: LFTs normal initially, with slight bump in AST possibly related to antibiotics, now improving, with otherwise negative MRI, likely physiological postcholecystectomy.
Subjective
Subjective
Date of Service: July 30, 2024
Patient feeling okay, did have several bowel movements yesterday, though still having lower abdominal pain. No vomiting, fever or chills, tolerated clears.
Objective
Data Reviewed
Laboratory Data:
Laboratory Results
07/30/24 06:10
07/30/24 06:10
Laboratory Results
Magnesium 1.7 mg/dl (1.6-2.3) 07/29/24 08:55
Total Bilirubin 0.8 mg/dl (0.2-1.3) 07/30/24 06:10
AST 41 U/L (14-36) H 07/30/24 06:10
ALT 34 U/L (0-35) 07/30/24 06:10
Alkaline Phosphatase 128 U/L (38-126) H 07/30/24 06:10
Lipase 35 U/L (23-300) 07/27/24 16:17
Vital Signs and I&O:
Vital Signs
Temp Pulse Resp BP Pulse Ox
98.7 F 58 18 140/73 97
07/30/24 07:46 07/30/24 07:46 07/30/24 07:46 07/30/24 07:46 07/30/24 07:46
I&O
07/29/24 07/30/2407/31/25
06:59 06:59 06:59
Intake Total 1599
Balance 1599
Physical Exam
Physical Exam
General: NAD
Abdomen: normal bowel sounds, soft, mild lower abdominal tenderness, no masses or bruits, no ascites
[2024-07-30] MEDS: BENTYL 10 MG PO ×3 (09:44→17:50)
[2024-07-30] MEDS: SINEMET 25-100 1 TABLET PO ×3 (09:45→21:52)
--- NOTE | 2024-07-30 11:28 | W.PN.HOSP.TC ---
Today's Communication/Plan
-
Monitor for p.o. diet tolerance
Continue with IV antibiotics
Improvement in LFTs
Assessment / Plan
Assessment / Plan
# Acute uncomplicated Diverticulitis
-continue IV Zosyn
- Off IV fluids and can be restarted if with nausea or vomiting
- Intermittent abdominal pain. Bentyl started which seems to alleviate pain at times. Monitor for p.o. tolerance
-pain control
-GI c/s
# Severe intrahepatic and extrahepatic biliary dilatation
-ast now elevated
-h/o cholecystectomy
-MRCP results negative for choledocholithiasis
-GI consulted
-trend
# Hematuria
- CTM
- f/u as OP
# Parkinson's disease
-CREDIT VERIFIER- Xadago, Sinemet, nurtec
# Hypothyroidism- cont levothyroxine
# Insomnia- cont trazodone
DVT PPx Lovenox subQ
FULL CODE
Anticipated Discharge: 24 - 48 hours
Subjective/Interval History
-
Date of Service: July 30, 2024
States abdominal pain improved with Bentyl
Objective Data
-
Labs:
Laboratory Results
07/30/24
06:10
WBC 7.3
Hgb 12.7
Hct 36.8 L
Plt Count 268
Sodium 141
Potassium 4.0
Chloride 108 H
Carbon Dioxide 29
BUN 13
Creatinine 0.8
Glucose 96
Calcium 8.6
Total Bilirubin 0.8
AST 41 H
ALT 34
Alkaline Phosphatase 128 H
Vital Signs:
Vital Signs
Temp Pulse Resp BP Pulse Ox
98.7 F 58 18 140/73 97
07/30/24 07:46 07/30/24 07:46 07/30/24 07:46 07/30/24 07:46 07/30/24 07:46
I&O
07/29/24 07/30/24 07/31/24
06:59 06:59 06:59
Intake Total 1599
Balance 1599
Physical Exam
-
General: Well Developed, Well Nourished, No Apparent Distress, Comfortable and Conversant
HEENT: Normocephalic, Atraumatic and Moist Mucous Membranes
Respiratory: Clear to Auscultation
Cardiac: Regular Rhythm and S1/S2
GI: Soft, Normal Bowel Sounds and Tender (Tender on palpation in the left lower quadrant and right lower quadrant)
Musculoskeletal: No Clubbing, No Cyanosis and No Edema
Skin: Warm and Dry
Neuro: Awake, Alert, Oriented, AO x 3 and No Motor Deficits
Psych: Calm
[2024-07-30] MEDS: ZOFRAN 4 MG IV (12:25)
[2024-07-30] MEDS: NON-FORMULARY ITEM 100 MG PO (13:27)
[2024-07-30 16:08] VITALS: BP 164/79
[2024-07-30] MEDS: DESYREL 25 MG PO (21:52)
[2024-07-30 23:06] VITALS: BP 131/72
[2024-07-31] MEDS: ZOSYN 50 IV ×3 (05:00→15:54)
[2024-07-31] MEDS: SYNTHROID 50 MCG PO (05:05)
--- NOTE | 2024-07-31 05:40 | W.PN.GI.CBS2 ---
Today's Communication / Plan
-
Please see assessment and plan for details.
Assessment / Plan
-
1. Abdominal pain: Most consistent with diverticulitis, noted on CT scan, with initial leukocytosis which is since resolved. Her pain is overall improving and did have several bowel movements. Her symptoms have also improved with the addition of
Bentyl. Will await morning labs, though at this point will advance to low residue diet, and if tolerating is okay to DC from GI standpoint to complete course of antibiotics.
2. Dilated biliary ducts: LFTs normal initially, with slight bump in AST possibly related to antibiotics, now improving, with otherwise negative MRI, likely physiological postcholecystectomy.
Subjective
Subjective
Date of Service: July 31, 2024
Patient overall feeling better, much improved pain, did respond to Bentyl with help of her pain. She did have a bowel movement, no melena, no fever or chills, tolerated full liquid diet without difficulty.
Objective
Data Reviewed
Laboratory Data:
Laboratory Results
Magnesium 1.7 mg/dl (1.6-2.3) 07/29/24 08:55
Total Bilirubin 0.8 mg/dl (0.2-1.3) 07/30/24 06:10
AST 41 U/L (14-36) H 07/30/24 06:10
ALT 34 U/L (0-35) 07/30/24 06:10
Alkaline Phosphatase 128 U/L (38-126) H 07/30/24 06:10
Lipase 35 U/L (23-300) 07/27/24 16:17
Vital Signs and I&O:
Vital Signs
Temp Pulse Resp BP Pulse Ox
98.5 F 55 16 131/72 98
07/30/24 23:06 07/30/24 23:06 07/30/24 23:06 07/30/24 23:06 07/30/24 23:06
I&O
07/29/24 07/30/24 07/31/24
06:59 06:59 06:59
Intake Total 1599 / 1600 960 / 960
Balance 1599 960 / 960
Physical Exam
Physical Exam
General: NAD
Abdomen: normal bowel sounds, soft, minimal lower abdominal tenderness, no masses or bruits, no ascites
[2024-07-31] MEDS: TORADOL 15 MG IV (06:08)
[2024-07-31] MEDS: BENTYL 10 MG PO ×3 (06:08→17:49)
[2024-07-31 07:35] VITALS: BP 150/75
[2024-07-31 08:33] LABS: % Basophils 0.6 % (0-2); % Eosinophils 6.6 % (0-6); % Immature Granulocytes 0.3 % (0-0.5); % Monocytes 7.9 % (1.7-9.3); % Neutrophils 53.6 % (42.2-75.2); Absolute Eosinophils 0.4 10^3/uL (0-0.7); Absolute Lymphocytes 2.1 10^3/uL (1.2-3.4); Absolute Monocytes 0.5 10^3/uL (0.1-0.6); Absolute Neutrophils 3.6 10^3/uL (1.4-6.5); Hematocrit 34.7 % (37.0-47.0); Hemoglobin 12.4 g/dL (12.0-16.0); Mean Corp Hgb Conc. 35.7 g/dL (33.0-37.0); Mean Corpuscular Hgb 31.6 pg (27.0-31.0); Mean Corpuscular Volume 88.5 fL (81.0-99.0); Mean Platelet Volume 10.1 fL (7.4-10.4); Nucleated Red Blood Cells % 0 %; Platelet Count 244 10^3/uL (130-400); Red Blood Cell Count 3.92 10^6/uL (4.20-5.40); Red Cell Dist. Width 12.4 % (11.5-14.5); White Blood Cell Count 6.7 10^3/uL (4.8-10.8)
[2024-07-31] MEDS: NON-FORMULARY ITEM 100 MG PO (09:01)
[2024-07-31] MEDS: SINEMET 25-100 1 TABLET PO ×2 (09:01→15:54)
--- NOTE | 2024-07-31 09:04 | W.PN.HOSP.TC ---
Addendum entered and electronically signed by Mohan Arias MD 07/31/24 14:22:
I saw and evaluated the patient. I reviewed the resident�s note and agree with findings and plan as documented in the resident�s note.
1. Acute sigmoid diverticulitis -diagnosed on CT imaging. Second episode and no complicating factors on imaging. Patient responding appropriately to Zosyn. Has been started on low residue diet. Plan for patient to be discharged on total 10 days
of oral antibiotic therapy with patient being switched to Augmentin at discharge.
2. Hepatic ductal dilation -presumed to be postcholecystectomy related. GI evaluated and MRI abdomen did not show any other acute findings.
3. Right flank pain -nothing to suggest etiology on CT/MRI. Possibly functional in nature, patient did not have any bowel movement although started after taking Bentyl which was in turn prescribed for the flank pain. Providing double dose of
MiraLAX before discharge if constipation is adding to the symptoms.
More than 30 minutes spent in discharge including
Final examination of the patient
Summarizing hospital stay
Instructions for continuing care to all relevant caregivers
Preparation of discharge records, prescriptions, and referral forms
Total time spent (in minutes): 38 mins
Original Note:
Today's Communication/Plan
-
- Discharge plan
Assessment / Plan
Assessment / Plan
# Acute Diverticulitis
-Improvement with her abdominal
-Her diet was advanced to low residue this a.m. and tolerated well
-Continue IV Zosyn with the plan to switch her to oral antibiotic to complete the course at discharge
-Pain control
-GI on board-okay to discharge if she can tolerate her LR diet
# Severe intrahepatic and extrahepatic biliary dilatation with transaminitis
-h/o cholecystectomy
-Considered likely secondary to physiological changes postcholecystectomy by GI
-AST/ALT levels found elevated following her admission--trended down to normal levels
-MRCP results negative for choledocholithiasis
# History of hematuria
- CTM
- f/u as OP
# Parkinson's disease
-PULMONARY PHYSICIAN- Xadago, Sinemet, nurtec
# Hypothyroidism- cont levothyroxine
# Insomnia- cont trazodone
DVT PPx Lovenox subQ
FULL CODE
Anticipated Discharge: Today
Subjective/Interval History
-
Date of Service: July 31, 2024
Patient reports improvement with her abdominal pain and rated it 3/10 this am. No fever, no chills. Her diet advanced to LR this am by GI
Objective Data
-
Labs:
Laboratory Results
07/31/24
08:04
WBC 6.7
Hgb 12.4
Hct 34.7 L
Plt Count 244
Sodium Pending
Potassium Pending
Chloride Pending
Carbon Dioxide Pending
BUN Pending
Creatinine Pending
Glucose Pending
Calcium Pending
Total Bilirubin Pending
AST Pending
ALT Pending
Alkaline Phosphatase Pending
Vital Signs:
Vital Signs
Temp Pulse Resp BP Pulse Ox
98.4 F 57 16 150/75 99
07/31/24 07:35 07/31/24 07:35 07/31/24 07:35 07/31/24 07:35 07/31/24 07:35
I&O
07/30/24 07/31/24 08/01/24
06:59 06:59 06:59
Intake Total 1600 / 1600 1200 / 1200
Output Total 100 / 100
Balance 1600 / 1600 1200 / 1200 -100 / -100
Review of Systems
-
History Source: Patient
EENT: Reports No Symptoms Reported
Respiratory: Reports No Symptoms
Cardiac: Reports No Symptoms
Abdomen/GI: Reports Pain
Genitourinary: Reports No Symptoms
Musculoskeletal: Reports No Symptoms
Skin: Reports No Symptoms
Neuro: Reports No Symptoms
Physical Exam
-
HEENT: Normocephalic and Atraumatic
Respiratory: Clear to Auscultation
Cardiac: Regular Rhythm and S1/S2
GI: Soft, Nontender (Mild tenderness on right lower quadrant area ) and Nondistended
Musculoskeletal: No Clubbing, No Cyanosis and No Edema
Skin: Warm
Neuro: Awake, Alert and Oriented
Psych: Calm
[2024-07-31 09:18] LABS: ALT (SGPT) 16 U/L (0-35); AST (SGOT) 30 U/L (14-36); Albumin 3.5 g/dl (3.5-5.0); Alkaline Phosphatase 116 U/L (38-126); Blood Urea Nitrogen 9 mg/dl (7-17); Calcium 8.7 mg/dl (8.4-10.2); Carbon Dioxide 23 mmol/L (22-30); Chloride 110 mmol/L (98-107); Estimated Creatinine Clearance 79 ml/min; Glucose 87 mg/dl (70-99); Sodium 139 mmol/L (135-145); Total Bilirubin 0.7 mg/dl (0.2-1.3); Total Protein 5.6 g/dl (6.3-8.2); eGFR > 60.00
--- NOTE | 2024-07-31 12:14 | CM ---
Patient seen bedside.
Patient aware of CM availability should d/c needs arise.
Plan: home no needs.
[2024-07-31] MEDS: MIRALAX 17 GRAMS PO (14:29)
[2024-07-31 15:30] VITALS: BP 132/68
--- NOTE | 2024-07-31 17:15 | W.DCSUMMARY ---
Discharge Summary
Discharge Data
Date of Admission: 07/27/24
Date of Discharge: 07/31/24
-
Pending Results: No
Hospital Course
Disposition : Home
Primary care physician : Araseli Baca MD
Principal Discharge diagnosis : Acute diverticulitis, hepatic ductal dilation
Chronic Discharge diagnosis : Parkinson's disease, hypothyroidism, insomnia, history of hematuria
Hospital Course : The patient presented to ER on 07/27/2024 with right lower quadrant abdominal pain and diarrhea. Her lab results was remarkable for leukocytosis with elevated WBC to 11.6 and elevated AST levels to 132. Her abdominal CT noted acute
diverticulitis of the mid sigmoid colon with severe pain chronic inflammation and small amount of fluids she is send peritoneal fluid and severe diverticulosis in the sigmoid colon and ascending colon and severe intra hepatic and extrahepatic
biliary dilatation. The patient was seen by GI and was obtained MRCP. MRCP noted 'No biliary strictures or filling defects. No suspicious findings in the abdomen.' and 'Intrahepatic and extrahepatic biliary ductal dilatation, not unexpected for
postcholecystectomy status'
Her diet gradually was advanced. Patient's LFTs level and WBC come back to normal. GI considered her dilated biliary ducts is likely physiological postcholecystectomy. The patient's abdominal pain improved and she was able to tolerate low residue
diet this morning. She was placed on 6 days of Augmentin to complete antibiotic course treatment. She was recommended to see her PCP in a week for follow-up and also recommended to see a colorectal surgery given this is her second episode of
diverticulitis.
Other chronic diseases including Parkinson's disease, hypothyroidism, insomnia and history of hematuria were stable during the hospitalization. This chronic diseases were treated as able to
Important imaging findings :
CT abdomen/Pelvis 07/27/2024
CT Abd/pelvis W Iv Cont
CLINICAL INDICATION: Right lower quadrant abdominal pain. Diarrhea. Diverticulitis. Previous cholecystectomy.
TECHNIQUE: A CT examination of the abdomen and pelvis was performed following the administration of nonionic intravenous contrast. Oral contrast was not administered. Coronal and sagittal reformatted images were obtained. Automatic exposure control
radiation dose reduction technology was utilized.
COMPARISON: Comparison is made with a prior CT examination of the abdomen and pelvis performed 01/19/2023.
FINDINGS:
CHEST: The heart is normal in size. There is no pericardial or pleural effusion. There is mild elevation of the right hemidiaphragm. There is a mild amount of subpleural scarring and subsegmental atelectasis in the basilar segments of the lower
lobes. There are bands of subsegmental atelectasis and scarring in the right middle lobe and lingula.
ABDOMEN: The right lobe of liver is enlarged measuring 21.9 cm in length. There is an enhancing portosystemic intrahepatic shunt in the posterior segment of the right lobe the liver measuring 1.5 x 1.1 cm in size. There has been a previous
cholecystectomy. There is severe diffuse intrahepatic biliary dilatation. There is severe distention of the common hepatic duct and moderate distention of the common bile duct measuring 9.5 mm diameter.
There is no pancreatic ductal dilatation. There is mild diffuse pancreatic parenchymal atrophy. The spleen is normal in size. There is no mesenteric or retroperitoneal lymphadenopathy. There is mild calcific atherosclerotic plaque in the abdominal
aorta. There is no abdominal aortic aneurysm.
The adrenal glands appear normal. The kidneys are normal in size without evidence for hydronephrosis. There are small number of small bilateral renal cysts measuring less than 1.0 cm in size.
There is no abnormal distention or wall thickening in the stomach or duodenum. There is mild circumferential wall thickening throughout some of the left upper quadrant jejunal small bowel loops. There is a small fat-containing umbilical hernia.
There is no upper abdominal ascites or pneumoperitoneum.
PELVIS: There is no abnormal small bowel wall thickening or distention. The appendix appears normal. The ileocecal junction is located in the right side of the midabdomen. The cecum is distended with fecal material measuring 5.8 cm in length. There
is severe diverticulosis in the proximal ascending colon. There is moderate fecal material throughout the transverse and descending colon.
There is severe diverticulosis throughout the sigmoid colon. The mid sigmoid colon demonstrate moderate diffuse wall thickening. There is an inflamed diverticulum in the mid sigmoid colon surrounded by a large amount of pericolonic inflammation.
There is a small amount of peritoneal fluid in the pelvis around the sigmoid colon. There is no CT evidence for extraluminal air, pneumoperitoneum, or pericolonic abscess.
There are large number of calcified phleboliths in the pelvis. The uterus is anteverted. There is a 1.9 cm calcified leiomyoma in the left-sided uterine body. There are tiny calcifications in the left ovary. The right ovary appears normal. There is
no pelvic lymphadenopathy.
There is mild diffuse thickening of the urinary bladder wall. There are small calcifications in the anterior urinary bladder wall measuring up to 4 mm in size.
SKELETON: There is mild multilevel discogenic degenerative disease throughout the thoracic and lumbar spine. There are small multilevel vertebral body endplate Schmorl nodes in the lower thoracic spine. There is mild bilateral osteoarthritis of the
sacroiliac joints. There is a 1.1 cm calcification located along the lateral margin of the right greater trochanter consistent with calcific tendinitis of the right gluteus medius tendon attachment.
IMPRESSION:
1. ACUTE DIVERTICULITIS of the MID SIGMOID COLON with severe pericolonic inflammation and a small amount of adjacent peritoneal fluid.
2. Severe diverticulosis in the sigmoid colon and ascending colon.
3. Moderate amount of fecal material throughout the colon.
4. SEVERE INTRAHEPATIC and EXTRAHEPATIC BILIARY DILATATION which has markedly increased since 01/19/2023.
5. Mild hepatomegaly.
6. Mild diffuse urinary bladder wall thickening containing tiny calcifications suggesting chronic cystitis.
7. Small calcified uterine leiomyoma.
Electronically signed by Binu Lobato MD, 07/27/2024 7:46 PM
[employer] Dose Report: Up-to-date CT equipment and radiation dose reduction techniques were employed. CTDIvol: 12.5 - 12.6 mGy. DLP: 1403 mGy-cm.
Dictated By: Binu Lobato MD.
Dictated Date & Time: 07/27/241930
Signed/Co-Signer By: Binu Lobato MD /
Signed/Co-Signer Date & Time: 07/27/241945 /
Abdominal MRI 07/28/2024
FINDINGS:
LUNG BASES: Unremarkable.
ABDOMEN:
LIVER: Hepatomegaly measuring up to 20.7 cm. No significant difference of hepatic signal intensity between in and out of phase images. There is no focal hepatic parenchymal abnormality.
BILE DUCTS: Intrahepatic and extrahepatic biliary ductal dilatation, not unexpected for postcholecystectomy status. Common bile duct measures up to 1.2 cm (previously 1.0 cm on 07/26/2019).
GALLBLADDER: Absent.
PANCREAS: Unremarkable. Normal caliber pancreatic duct.
SPLEEN: Within normal limits.
ADRENAL GLANDS: Unremarkable.
KIDNEYS: There are renal cortical cysts present. No hydronephrosis.
BOWEL: Normal caliber.
PERITONEUM: No ascites or free air. No fluid collection.
VASCULATURE: No abdominal aortic aneurysm. Major abdominal veins are patent.
RETROPERITONEUM: Within normal limits.
LYMPH NODES: Within normal limits.
ABDOMINAL WALL: Unremarkable.
MUSCULOSKELETAL: No suspicious osseous abnormality.
IMPRESSION:
Intrahepatic and extrahepatic biliary ductal dilatation, not unexpected for postcholecystectomy status. No biliary strictures or filling defects. No suspicious findings in the abdomen.
Discharge Plan
-
Patient Disposition: Home (Routine Discharge)
Discharge Diagnosis/Procedures: Acute sigmoid diverticulitis
Condition: Fair
Additional Diets: Low residue - for 5 days
Activity: As tolerated
Driving Restrictions: As prior to admission
Referrals:
Adalberto Armstrong MD [Active] - in one to two weeks
Araseli Baca MD [Family Provider] - in less than 1 week (CMP and CBC follow with your PCP )
Prescriptions:
New
dicyclomine 10 mg Capsule
10 mg PO QIDPRN PRN (Reason: abdominal pain) 5 Days Qty: 10 0RF
amoxicillin-pot clavulanate 875-125 mg tablet
1 tab PO BID 6 Days Qty: 12 0RF
docusate sodium [Colace] 100 mg capsule
100 mg PO BID Qty: 60 0RF
Continued
ascorbic acid (vitamin C) [Vitamin C] 500 MG tablet
2,000 mg PO DAILY
levothyroxine 50 MCG tablet
50 mcg PO DAILY
vitamin B complex [B-Complex] 1 TAB tablet
1 tab PO DAILY
K2 Plus D3 1 EACH tablet
6 drops PO DAILY
Xadago 100 MG tablet
100 mg PO DAILY
turmeric 400 mg Capsule
400 mg PO DAILY
cyanocobalamin (vitamin B-12) 1,000 MCG tablet
1,000 mcg PO DAILY
multivitamin with folic acid [Tab-A-Marlene] 1 TABLET tablet
1 tab PO DAILY
trazodone 50 mg Tablet
25 mg PO HS
ramelteon 8 mg Tablet
8 mg PO HS
Visbiome 112.5 billion cell Capsule
1 cap PO DAILY
Nurtec ODT 75 mg Tablet,Disintegrating
75 mg PO DAILYPRN PRN (Reason: MIRGRAINES)
carbidopa-levodopa 25-100 mg Tablet
1 tab PO TID Qty: 0 0RF
Discharge Orders:
Discharge Patient (As Directed); Ordered 07/31/24
Ordered By: Moni Hannah
Discharge Date and Time
Print Language: MACEDONIAN
== END 2024-07-31 19:19 | disposition home or self-care (01) | DRG 392 ==
LOC: 1 ACUTE 22:20
PROVIDERS: Emergency Medicine; Hospitalist; ADMITTING PHYSICIAN Student in an Organized Health Care Education/Training Program; ATTENDING PHYSICIAN Hospitalist; CONSULT PHYSICIAN Internal Medicine Gastroenterology; EMERGENCY PHYSICIAN Student in an Organized Health Care Education/Training Program; FAMILY PHYSICIAN Family Medicine
DX: K57.32 Diverticulitis of large intestine without perforation or abscess without bleeding (principal); K83.8 Other specified diseases of biliary tract; G20.A1 Parkinson's disease without dyskinesia, without mention of fluctuations; G43.909 Migraine, unspecified, not intractable, without status migrainosus; G47.00 Insomnia, unspecified; E03.9 Hypothyroidism, unspecified; R31.9 Hematuria, unspecified; Z79.890 Hormone replacement therapy; Z87.891 Personal history of nicotine dependence; Z88.1 Allergy status to other antibiotic agents; Z90.49 Acquired absence of other specified parts of digestive tract; Z79.899 Other long term (current) drug therapy
CPT/HCPCS: 74177; 74183; 80053; 81003; 81015; 82248; 82962; 83690; 83735; 85025; 96365; 96375; 96376; 99285; A9575; Q9967

== ENCOUNTER → 2024-09-05 15:42 | Outpatient (REF) | payer MEDICARE, OTHER, SELFPAY | LOC: RAD 15:42 | PROVIDERS: ATTENDING PHYSICIAN Family Medicine | DX: R10.31 Right lower quadrant pain (principal); R10.32 Left lower quadrant pain; Z87.19 Personal history of other diseases of the digestive system | CPT/HCPCS: 74177; Q9967 ==

== ENCOUNTER 2024-10-10 18:27 | Emergency (ER) | payer MEDICARE, OTHER, SELFPAY ==
[2024-10-10 18:33] VITALS: BP 168/89
[2024-10-10 18:46] LABS: Hematocrit 40.4 % (37.0-47.0); Hemoglobin 13.9 g/dL (12.0-16.0); Mean Corp Hgb Conc. 34.4 g/dL (33.0-37.0); Mean Corpuscular Volume 89.8 fL (81.0-99.0); Nucleated Red Blood Cells % 0 %; Platelet Count 270 10^3/uL (130-400); Red Cell Dist. Width 12.3 % (11.5-14.5)
[2024-10-10 19:15] LABS: ALT (SGPT) 15 U/L (0-35); AST (SGOT) 24 U/L (14-36); Albumin 4.4 g/dl (3.5-5.0); Alkaline Phosphatase 89 U/L (38-126); Blood Urea Nitrogen 17 mg/dl (7-17); Calcium 9.3 mg/dl (8.4-10.2); Carbon Dioxide 26 mmol/L (22-30); Chloride 107 mmol/L (98-107); Glucose 138 mg/dl (70-99); Lipase 36 U/L (23-300); Potassium 4.5 mmol/L (3.5-5.1); Sodium 138 mmol/L (135-145); Total Protein 6.9 g/dl (6.3-8.2); eGFR > 60.00
[2024-10-10] MEDS: NSS 1000 IV (20:52)
[2024-10-10] MEDS: ZOFRAN 4 MG IV (20:53)
[2024-10-10] MEDS: DILAUDID 0.5 MG IV (20:53)
[2024-10-10 20:54] VITALS: BP 124/72
[2024-10-10 21:00] VITALS: BP 129/66
--- NOTE | 2024-10-10 21:10 | ED.GENMED ---
History of Present Illness
General
Chief Complaint: Abdominal Pain
Source: patient and spouse
Exam Limitations: none
Time Seen by Provider: 10/10/24 20:27
Nursing documentation reviewed up to this point in time: agreed with
History of Present Illness
History of Present Illness:
68-year-old female abdominal cramping pain right greater than left consistent with her prior diverticulitis 3 prior episodes treated conservatively both at home and as an inpatient did see his surgeon talked about elective resection, had no fevers
did pass some gas and now is feeling better, gallbladder has been removed so is her appendix, drink socially not excess, non-smoker
Past History
Past History
ED Past Medical History: Other (RSD, Parkinson's, diverticulitis, melanoma)
ED Past Surgical History: Cholecystectomy, and Orthopedic
Social History
Tobacco: Non-smoker
Alcohol: Occasional
Drug: None
Personal:
Living: with family
Employment: Employed
Family History
Family History: Other (she has a mother with hypertension hyperlipidemia)
Review of Systems
Review of Systems
All Other Systems: Not applicable
Constitutional: Denies fever or fatigue
EENT: Reports no symptoms
Respiratory: Reports no symptoms
Cardiac: Denies chest pain
ABD/GI: Reports abdominal pain and nausea; Denies bloody stools or black stools
Phy Exam
Physical Exam
Physical Exam:
Physical Exam
General: no apparent distress, not acutely ill
Neck: Without jaundice
Heart: s1/s2 regular rate and rhythm, no murmur. equal radial pulses.
Lungs: no acute respiratory distress. clear bilaterally
Abdomen: Tender right greater than left
Neuro: alert and oriented. no focal neurological deficits
Skin: no rash
Psychiatric: well kept. interactive and cooperative
Extremities: no edema.
Course
Orders/Labs/Results
Orders:
Orders
10/10/24 18:39
Complete Blood Count/With Diff Urgent
Comprehensive Metabolic Panel Urgent
Lipase Urgent
10/10/24 20:27
Electrocardiogram (*1) Stat
Reason for Study: Abdominal Pain
CT Abd/Pel (IV only)-DH only Urgent
Comment:
Reason For Exam: abd pain
EKG- Treatment ONCE
IV Insert/Care/Rem.- Treatment PRN
0.9% Sodium Chloride 1000 ml [Nss] 1,000 ml IV BOLUS
HYDROmorphone [Dilaudid] 0.5 mg IV NOW STA
Ondansetron Injectable [Zofran] 4 mg IV NOW STA
Abnormal Lab Results
10/10/24
18:39
Glucose 138 H mg/dl
(70-99)
10/10/24 18:39
10/10/24 18:39
Vital Signs
Initial and Last Documented VS:
Initial Vital Signs
Temp Pulse Resp BP Pulse Ox
97.6 F 72 16 168/89 99
10/10/24 18:33 10/10/24 18:33 10/10/24 18:33 10/10/24 18:33 10/10/24 18:33
Last Documented Vital Signs
Temp Pulse Resp BP Pulse Ox
97.6 F 65 12 129/66 96
10/10/24 18:33 10/10/24 21:00 10/10/24 21:00 10/10/24 21:00 10/10/24 21:12
MDM/Problems Addressed
Differential Diagnosis Includes:
Diverticulitis appendicitis colitis UTI renal stone
MDM/Problems Addressed:
Abdominal pain
Chronic conditions affecting care: Previous abdomnial surgery
Acute Exacerbation and/or Progression of Chronic Illness: Previous abdomnial surgery
*Radiology
Radiology exam reviewed: radiology read reviewed
*Pulse Oximetry
SaO2: 96
Oxygen Mode of Delivery: Room air
Patient hypoxic: no
*EKG
Interpreted by ED Provider?: Yes
Interpretation: normal
Comparison EKG: no comparison EKG present
Heart Rate: 78
Rate: normal
Rhythm: sinus
Ischemia: non-specific ST changes
*Syrup Mixer Interpretation
Rate: normal
Interpretation: normal
Heart Rate: 78
Rhythm: sinus
*Critical Care Note
Total Time (30-74mins, 75-104mins- exclusive of procedures): Not Applicable
Update Note
Update Note:
10:[address] report noted patient updated
ED Attending Note
-
Portions of this chart may have been created with voice recognition software.� Occasional wrong word or��sound alike� substitutions may have occurred due to the inherent limitations of voice recognition software.
Discharge Plan
Departure
Patient Disposition: Home (Routine Discharge)
Date of Disposition: 10/10/24
Time of Disposition: 22:37
Patient with high blood pressure during this ER visit?: No
Condition: Good
Discharge Problem:
Abdominal pain
Instructions: Abdominal Pain
Prescriptions:
New
dicyclomine 20 mg tablet
20 mg PO QID PRN (Reason: abdominal pain) Qty: 20 2RF
ondansetron 4 mg tablet,disintegrating
4 mg PO Q8H Qty: 10 0RF
No Action
ascorbic acid (vitamin C) [Vitamin C] 500 MG tablet
2,000 mg PO DAILY
levothyroxine 50 MCG tablet
50 mcg PO DAILY
vitamin B complex [B-Complex] 1 TAB tablet
1 tab PO DAILY
K2 Plus D3 1 EACH tablet
6 drops PO DAILY
Xadago 100 MG tablet
100 mg PO DAILY
turmeric 400 mg Capsule
400 mg PO DAILY
cyanocobalamin (vitamin B-12) 1,000 MCG tablet
1,000 mcg PO DAILY
multivitamin with folic acid [Tab-A-Marlene] 1 TABLET tablet
1 tab PO DAILY
trazodone 50 mg Tablet
25 mg PO HS
ramelteon 8 mg Tablet
8 mg PO HS
Visbiome 112.5 billion cell Capsule
1 cap PO DAILY
Nurtec ODT 75 mg Tablet,Disintegrating
75 mg PO DAILYPRN PRN (Reason: MIRGRAINES)
dicyclomine 10 mg Capsule
10 mg PO QIDPRN PRN (Reason: abdominal pain) 5 Days Qty: 10 0RF
amoxicillin-pot clavulanate 875-125 mg tablet
1 tab PO BID 6 Days Qty: 12 0RF
carbidopa-levodopa 25-100 mg Tablet
1 tab PO TID Qty: 0 0RF
docusate sodium [Colace] 100 mg capsule
100 mg PO BID Qty: 60 0RF
Referrals:
Araseli Baca MD [Family Provider, Family Practice]
Interventions
Interventions:
*Risk Screen - Suicide Last Done: 10/10/24 18:34
*General Assessment Last Done: 10/10/24 20:58
*Neglect/Abuse Screening Last Done: 10/10/24 18:34
*ED- Fall Risk Assessment Last Done: 10/10/24 20:58
*ED COVID-19 Vaccine History Last Done: 10/10/24 20:58
XC-Qnmuqv-Aidwsmufxc Assessment Last Done: 10/10/24 21:04
Discharge Date and Time
Print Language: UKRAINIAN
[2024-10-10 22:07] VITALS: BP 134/65
== END 2024-10-10 23:00 | disposition home or self-care (01) ==
LOC: EMR 18:27
PROVIDERS: Emergency Medicine; EMERGENCY PHYSICIAN Emergency Medicine; FAMILY PHYSICIAN Family Medicine
DX: R10.9 Unspecified abdominal pain (principal); Z87.19 Personal history of other diseases of the digestive system; G20.A1 Parkinson's disease without dyskinesia, without mention of fluctuations; Z90.49 Acquired absence of other specified parts of digestive tract
CPT/HCPCS: 96374; 96375; 96361; 99284; 74177; 80053; 83690; 85025; 93005; Q9967

== ENCOUNTER → 2024-10-17 13:18 | Outpatient (REF) | payer MEDICARE, OTHER, SELFPAY | LOC: HWRAD 13:18 | PROVIDERS: ATTENDING PHYSICIAN Obstetrics & Gynecology Gynecology; FAMILY PHYSICIAN Family Medicine | DX: N95.0 Postmenopausal bleeding (principal) | CPT/HCPCS: 76830; 76856 ==

== ENCOUNTER → 2024-12-06 19:06 | Outpatient (REF) | payer MEDICARE, OTHER, SELFPAY | LOC: WDC 19:06 | PROVIDERS: ATTENDING PHYSICIAN Obstetrics & Gynecology Gynecology; FAMILY PHYSICIAN Family Medicine | DX: Z12.31 Encounter for screening mammogram for malignant neoplasm of breast (principal); Z12.39 Encounter for other screening for malignant neoplasm of breast | CPT/HCPCS: 77063; 77067 ==